=== PATIENT | male | born 1965 | race Caucasian/White ===

== ENCOUNTER 2016-10-14 17:42 | Emergency (ER) | payer OTHER ==
[2016-10-14 17:48] VITALS: RESP 16; TEMP 98.2
--- NOTE | 2016-10-14 17:56 | CPEKG ---
Heart Rate: 49 RR Interval: 1224 P-R Interval: 160 QRSD Interval: 90 QT Interval: 416 QTC Interval: 376 P [place]: 44 QRS [place]: 52 T Wave [place]: 17 EKG Severity - OTHERWISE NORMAL ECG - EKG Impression: SINUS BRADYCARDIA Electronically Signed By: Danna Franco 14-Oct-2016 19:33:42
--- NOTE | 2016-10-14 17:57 | EDPHY ---
H & P Time Seen by Provider: 10/14/16 17:49 HPI/ROS: CHIEF COMPLAINT: Chest discomfort. HISTORY OF PRESENT ILLNESS: The patient is a 51-year-old male with a history of hypercholesterolemia who presents with persistent 2/10 left-sided chest discomfort that began this morning. He describes it as a muscle tightness or a slight pressure. He does not notice the pain when he is distracted. No change with exertion or deep inspiration. He denies associated sx; no shortness of breath, fever, vomiting, diarrhea, or other complaints. The pain is currently 1/ 10. He does have a history of similar symptoms 10 years ago and had a negative stress test at that time. Intermittent similar sx since then. He denies family cardiac history. REVIEW OF SYSTEMS: A complete 10-point review of systems was performed and is negative except for those items mentioned in the HPI. Past Medical/Surgical History: Hypercholesterolemia. Social History: Nonsmoker. Smoking Status: Never smoked Physical Exam: General Appearance: Alert, no distress Eyes: Pupils equal and round, no conjunctival pallor or injection ENT, Mouth: Mucous membranes moist Neck: Normal inspection Respiratory: Lungs are clear to auscultation Cardiovascular: Regular rate and rhythm Gastrointestinal: Abdomen is soft and non-tender Neurological: A&O, nonfocal, normal gait Skin: Warm and dry, no rash Extremities: Nontender, no pedal edema Psychiatric: Mood and affect normal Constitutional: Initial Vital Signs Temperature (C) 36.8 C 10/14/16 17:44 Heart Rate 61 10/14/16 17:44 Respiratory Rate 16 10/14/16 17:44 Blood Pressure 151/94 H 10/14/16 17:44 O2 Sat (%) 95 10/14/16 17:44 O2 Delivery Mode Room Air Allergies/Adverse Reactions: No Known Allergies Allergy (Unverified 10/14/16 17:43) Home Medications: Medication Instructions Recorded Claritin 10/14/16 Medical Decision Making - Diagnostics Imaging: Imaging Impressions Chest X-Ray 10/14/16 17:52 Impression: 1. Possibly mild airways disease. 2. Mild cardiomegaly without CHF. Enlarged right atrium. ED Course/Re-evaluation: 51-year-old male with a history of hypercholesterolemia presents with intermittent 2/10 left-sided chest discomfort that began this morning. He has no other symptoms with this. He does not have diabetes and is a non-smoker. He has a normal exam today in the ED. He has a family history of hypercholesterolemia but no cardiac disease. An IV was established and labs ordered. Chest x-ray and EKG obtained. Stat EKG reveals no evidence of ischemia or dysrhythmia. I independently viewed the patient's images on the PACS system. My interpretation: No acute disease. Please see Imaging section for radiologist report. This patient presents with atypical chest pain. After careful consideration and evaluation, I find no evidence of acute coronary syndrome. The patient has prolonged and quite mild cp, no exertional sx, normal EKG and normal studies. In addition, I feel that I can safely exclude pulmonary embolism, with normal vital signs, normal oxygen saturation and no RF for PE. In addition there is no evidence of pneumothorax, pneumonia, aortic dissection. No chest pain on discharge. Differential Diagnosis: The differential diagnosis for the patient's chest pain included but was not limited to myocardial ischemia, pulmonary embolus, chest wall pain, pleural inflammation, and pulmonary infectious causes. - Data Points Laboratory Results: Laboratory Results 10/14/16 18:00 10/14/16 18:00 10/14/16 10/14/16 18:00 18:00 WBC 8.27 10^3/uL 10^3/uL (3.80-9.50) RBC 5.66 10^6/uL 10^6/uL (4.40-6.38) Hgb 16.6 g/dL g/dL (13.7-17.5) Hct 47.2 % % (40.0-51.0) MCV 83.4 fL fL (81.5-99.8) MCH 29.3 pg pg (27.9-34.1) MCHC 35.2 g/dL g/dL (32.4-36.7) RDW 13.0 % % (11.5-15.2) Plt Count 209 10^3/uL 10^3/uL (150-400) MPV 12.4 fL H fL (8.7-11.7) Neut % (Auto) 56.2 % % (39.3-74.2) Lymph % (Auto) 31.3 % % (15.0-45.0) [place] % (Auto) 8.0 % % (4.5-13.0) Eos % (Auto) 3.4 % % (0.6-7.6) Baso % (Auto) 0.7 % % (0.3-1.7) Nucleat RBC Rel Count 0.0 % % (0.0-0.2) Absolute Neuts (auto) 4.65 10^3/uL 10^3/uL (1.70-6.50) Absolute Lymphs (auto) 2.59 10^3/uL 10^3/uL (1.00-3.00) Absolute Monos (auto) 0.66 10^3/uL 10^3/uL (0.30-0.80) Absolute Eos (auto) 0.28 10^3/uL 10^3/uL (0.03-0.40) Absolute Basos (auto) 0.06 10^3/uL 10^3/uL (0.02-0.10) Absolute Nucleated RBC 0.00 10^3/uL 10^3/uL (0-0.01) Immature Gran % 0.4 % % (0.0-1.1) Immature Gran # 0.03 10^3/uL 10^3/uL (0.00-0.10) Sodium 141 mEq/L mEq/L (134-144) Potassium 4.1 mEq/L mEq/L (3.5-5.2) Chloride 107 mEq/L mEq/L (97-110) Carbon Dioxide 24 mEq/l mEq/l (22-31) Anion Gap 10 mEq/L mEq/L (8-16) BUN 21 mg/dL mg/dL (7-23) Creatinine 0.8 mg/dL mg/dL (0.7-1.3) Estimated GFR > 60 Glucose 77 mg/dL mg/dL (70-100) Calcium 9.3 mg/dL mg/dL (8.5-10.4) Troponin I < 0.012 ng/mL ng/mL (0-0.034) Departure - Departure Disposition: Home, Routine, Self-Care Clinical Impression: Chest pain Qualifiers: Chest pain type: unspecified Qualified Code(s): R07.9 - Chest pain, unspecified Condition: Good Instructions: Chest Pain (ED) Additional Instructions: Follow up with Dr. Lawson, cardiology, this week further evaluation. Return to the emergency department if you experience worsening chest pain, shortness of breath, fever or any concerns. Referrals: Sabrina Ryan MD [Primary Care Provider] - As per Instructions Ray Lawson MD [Medical Doctor] - As per Instructions Report Scribed for: Danna Franco Report Scribed by: Elton Hutchison Date of Report: 10/14/16 Time of Report: 17:50 Physician Review and Approval Statement: 10/14/16 17:50 Portions of this note were transcribed by a director medical writing. I personally performed a history, physical exam, medical decision making, and confirmed accuracy of information the transcribed note.
[2016-10-14 18:09] LABS: % IMMATURE GRANULYOCYTES 0.4 % (0.0-1.1); ABSOLUTE IMMATURE GRANULOCYTES 0.03 10^3/uL (0.00-0.10); ADD DIFF? NO; ADD MORPH? NO; ADD SCAN? NO; ATYPICAL LYMPHOCYTE FLAG 10 (0-99); FRAGMENT RBC FLAG 0 (0-99); HEMATOCRIT 47.2 % (40.0-51.0); HEMOGLOBIN 16.6 g/dL (13.7-17.5); LEFT SHIFT FLG 0 (0-99); LIPEMIA HEMOLYSIS FLAG 90 (0-99); MEAN CELL HEMOGLOBIN 29.3 pg (27.9-34.1); MEAN CELL HEMOGLOBIN CONCENTR. 35.2 g/dL (32.4-36.7); MEAN CELL VOLUME 83.4 fL (81.5-99.8); MEAN PLATELET VOLUME 12.4 fL (8.7-11.7); PLATELET CLUMPS FLAG 0 (0-99); PLATELET COUNT 209 10^3/uL (150-400); RED BLOOD CELL COUNT 5.66 10^6/uL (4.40-6.38)
[2016-10-14 18:34] LABS: ANION GAP 10 mEq/L (8-16); CALCIUM 9.3 mg/dL (8.5-10.4); CARBON DIOXIDE 24 mEq/l (22-31); CHLORIDE 107 mEq/L (97-110); CREATININE 0.8 mg/dL (0.7-1.3); GLOMERULAR FILTRATION RATE > 60; GLUCOSE 77 mg/dL (70-100); POTASSIUM 4.1 mEq/L (3.5-5.2); SODIUM 141 mEq/L (134-144)
[2016-10-14 18:45] LABS: TROPONIN I < 0.012 ng/mL (0-0.034)
[2016-10-14 19:17] VITALS: BP 120/71; PULSE 51; O2SAT 96
== END 2016-10-14 19:16 | disposition home or self-care (01) ==
DX: R07.9 Chest pain, unspecified (principal)

== ENCOUNTER 2018-10-20 12:34 | Emergency (ER) | payer OTHER ==
--- NOTE | 2018-10-20 12:44 | EDPHY ---
H & P Stated Complaint: chest tightness Time Seen by Provider: 10/20/18 12:44 - Personal History Current Tetanus/Diphtheria Vaccine: Unsure Current Tetanus Diphtheria and Acellular Pertussis (TDAP): Unsure - Medical/Surgical History Hx Asthma: No Hx Chronic Respiratory Disease: No Hx Diabetes: No Hx Cardiac Disease: No Hx Renal Disease: No Hx Cirrhosis: No Hx Alcoholism: No Hx HIV/AIDS: No Hx Splenectomy or Spleen Trauma: No Other PMH: denies - Social History Smoking Status: Never smoked Constitutional: Initial Vital Signs Temperature (C) 36.8 C 10/20/18 12:36 Heart Rate 54 L 10/20/18 12:36 Respiratory Rate 16 10/20/18 12:36 Blood Pressure 135/85 H 10/20/18 12:36 O2 Sat (%) 97 10/20/18 12:36 O2 Delivery Mode Room Air Allergies/Adverse Reactions: No Known Allergies Allergy (Unverified 10/20/18 12:35) Home Medications: Medication Instructions Recorded Claritin 10/14/16 Medical Decision Making ED Course/Re-evaluation: CHIEF COMPLAINT: HISTORY OF PRESENT ILLNESS: The patient is a 53 y/o male complaining of left-sided chest tightness. worse with movement and taking a deep breath No fever, headache, body aches, lightheadedness, chest pain, heart palpitations , shortness of breath, cough, abdominal pain, urinary or bowel complaints, numbness, paresthesias. REVIEW OF SYSTEMS: A 10 point review of systems was performed and is negative with the exception of the elements mentioned in the history of present illness. PHYSICAL EXAM: HR, BP, O2 Sat, RR. Temp noted General Appearance: Alert, well hydrated, appropriate, and non-toxic appearing. Head: Atraumatic without scalp tenderness or obvious injury Eyes: Pupils equal, round, reactive to light and accommodation, EOMI, no trauma , no injection. Ears: Clear bilaterally, no perforation, normal landmarks Nose: Atraumatic, no rhinorrhea, clear. Throat: There is no erythema or exudates, no lesions, normal tonsils, mucus membranes moist. Neck: Supple, 2+ carotid upstroke, nontender, no lymphadenopathy. Respiratory: No retractions, no distress, no wheezes, and no accessory muscle use. Lungs are clear to auscultation bilaterally. Cardiovascular: Regular rate and rhythm, no murmurs, rubs, or gallops. Bilateral carotid, radial, dorsalis pedis, and posterior tibial pulses intact. Good capillary refill all extremities. Gastrointestinal: Abdomen is soft, nontender, non-distended, no masses, no rebound, no guarding, no peritoneal signs. Musculoskeletal: Normal active ROM of all extremities, atraumatic. Neurological: Alert, appropriate, and interactive. The patient has normal DTRs and non-focal cranial nerves, motor, sensory, and cerebellar exam. Skin: No rashes, good turgor, no nodules on palpation. Past medical history: Past surgical history: Family history: Social history: DIAGNOSTICS/PROCEDURES/CRITICAL CARE TIME: DIFFERENTIAL DIAGNOSIS: MEDICAL DECISION MAKIN: I interpreted patient's EKG as sinus rhythm with a rate of 55. Report Scribed for: Sabino Echols Report Scribed by: Lizy Houston Date of Report: 10/20/18 Time of Report: 12:44
--- NOTE | 2018-10-20 12:47 | EDPHY ---
H & P Stated Complaint: chest tightness Time Seen by Provider: 10/20/18 12:44 - Personal History Current Tetanus/Diphtheria Vaccine: Unsure Current Tetanus Diphtheria and Acellular Pertussis (TDAP): Unsure - Medical/Surgical History Hx Asthma: No Hx Chronic Respiratory Disease: No Hx Diabetes: No Hx Cardiac Disease: No Hx Renal Disease: No Hx Cirrhosis: No Hx Alcoholism: No Hx HIV/AIDS: No Hx Splenectomy or Spleen Trauma: No Other PMH: denies - Social History Smoking Status: Never smoked Constitutional: Initial Vital Signs Temperature (C) 36.8 C 10/20/18 12:36 Heart Rate 54 L 10/20/18 12:36 Respiratory Rate 16 10/20/18 12:36 Blood Pressure 135/85 H 10/20/18 12:36 O2 Sat (%) 97 10/20/18 12:36 O2 Delivery Mode Room Air Allergies/Adverse Reactions: No Known Allergies Allergy (Unverified 10/20/18 12:35) Home Medications: Medication Instructions Recorded Claritin 10/14/16 Medical Decision Making - Diagnostics Imaging Results: Imaging Impressions Chest X-Ray 10/20/18 12:42 Impression: 1. Chronic or recurrent mild airways disease. 2. Mild cardiomegaly with a persistent prominent right atrial contour. Is there any history of tricuspid valve disease? Imaging: I viewed and interpreted images myself ED Course/Re-evaluation: CHIEF COMPLAINT: Chest tightness HISTORY OF PRESENT ILLNESS: The patient is a 53 y/o male complaining of left-sided dull chest tightness. The patient did go on a long bike ride this weekend. Today he developed an "odd sensation in his sternum and rib cage" which has now migrated to his left chest. His symptoms are exacerbated when moving his left arm, twisting his chest or when taking a deep breath. He cannot feel the pain when he is lying still. His pain is non-radiating. No fever, headache, body aches, lightheadedness, heart palpitations, shortness of breath, cough, abdominal pain , urinary or bowel complaints, numbness, paresthesias. REVIEW OF SYSTEMS: A comprehensive 10 system review of systems is otherwise negative aside from elements mentioned in the history of present illness and medical decision making. PHYSICAL EXAM: HR, BP, O2 Sat, RR. Temp noted General Appearance: Alert, well hydrated, appropriate, and non-toxic appearing. Head: Atraumatic without scalp tenderness or obvious injury Eyes: Pupils equal, round, reactive to light and accommodation, EOMI, no trauma , no injection. Ears: Clear bilaterally, no perforation, normal landmarks Nose: Atraumatic, no rhinorrhea, clear. Throat: There is no erythema or exudates, no lesions, normal tonsils, mucus membranes moist. Neck: Supple, 2+ carotid upstroke, nontender, no lymphadenopathy. Respiratory: No retractions, no distress, no wheezes, and no accessory muscle use. Lungs are clear to auscultation bilaterally. Cardiovascular: Regular rate and rhythm, no murmurs, rubs, or gallops. Bilateral carotid, radial, dorsalis pedis, and posterior tibial pulses intact. Good capillary refill all extremities. Gastrointestinal: Abdomen is soft, nontender, non-distended, no masses, no rebound, no guarding, no peritoneal signs. Musculoskeletal: Normal active ROM of all extremities, atraumatic. Neurological: Alert, appropriate, and interactive. The patient has normal DTRs and non-focal cranial nerves, motor, sensory, and cerebellar exam. Skin: No rashes, good turgor, no nodules on palpation. Past medical history: Denies Past surgical history: Denies Family history: Denies Social history: Lives in [place], single, employed DIAGNOSTICS/PROCEDURES/CRITICAL CARE TIME: EKG: The 12 lead EKG was interpreted by myself as. See hard copy and/or "tracemaster" electronic copy for interpretation. Chest x-ray: Mild airways disease. DIFFERENTIAL DIAGNOSIS: The differential diagnosis for the patient's chest pain included but was not limited to myocardial ischemia, pulmonary embolus, chest wall pain, pleural inflammation, and pulmonary infectious causes. MEDICAL DECISION MAKING: The patient is a 53 y/o male presenting with left-sided dull chest tightness. Today he developed an "odd sensation in his sternum and rib cage" which has now migrated to his left chest. His symptoms are exacerbated when moving his left arm, twisting his chest or when taking a deep breath. On exam the chest pain is non-reproducible. Labs, EKG, and chest x-ray ordered; 30mg IV Toradol administered. 1243: I interpreted patient's EKG as sinus rhythm with a rate of 55. 1322: Patient's chest x-ray reveals mild airway disease. Labs still pending. 1328: Patient has denied the Toradol as he doesn't want to try new medications at this time. 1409: Reassessed patient and discussed normal laboratory and imaging findings. I have advised him to follow up with a precision grinder external. Return precautions provided ; patient is comfortable with this plan. - Data Points Laboratory Results: Laboratory Results 10/20/18 12:46 10/20/18 12:46 10/20/18 10/20/18 10/20/18 12:46 12:46 12:46 WBC RBC Hgb Hct MCV MCH MCHC RDW Plt Count MPV Neut % (Auto) Lymph % (Auto) [place] % (Auto) Eos % (Auto) Baso % (Auto) Nucleat RBC Rel Count Absolute Neuts (auto) Absolute Lymphs (auto) Absolute Monos (auto) Absolute Eos (auto) Absolute Basos (auto) Absolute Nucleated RBC Immature Gran % Immature Gran # D-Dimer 0.36 ug/mLFEU ug/mLFEU (0.00-0.50) Sodium 138 mEq/L mEq/L (135-145) Potassium 4.5 mEq/L mEq/L (3.5-5.2) Chloride 103 mEq/L mEq/L (97-110) Carbon Dioxide 24 mEq/l mEq/l (22-31) Anion Gap 11 mEq/L mEq/L (6-14) BUN 19 mg/dL mg/dL (7-23) Creatinine 0.8 mg/dL mg/dL (0.7-1.3) Estimated GFR > 60 Glucose 99 mg/dL mg/dL (70-100) Calcium 9.6 mg/dL mg/dL (8.5-10.4) POC Troponin I 0.02 ng/mL ng/mL (0.00-0.08) 10/20/18 12:46 WBC 5.65 10^3/uL 10^3/uL (3.80-9.50) RBC 5.88 10^6/uL 10^6/uL (4.40-6.38) Hgb 17.0 g/dL g/dL (13.7-17.5) Hct 50.5 % % (40.0-51.0) MCV 85.9 fL fL (81.5-99.8) MCH 28.9 pg pg (27.9-34.1) MCHC 33.7 g/dL g/dL (32.4-36.7) RDW 13.1 % % (11.5-15.2) Plt Count 212 10^3/uL 10^3/uL (150-400) MPV 12.2 fL H fL (8.7-11.7) Neut % (Auto) 54.2 % % (39.3-74.2) Lymph % (Auto) 32.9 % % (15.0-45.0) [place] % (Auto) 8.5 % % (4.5-13.0) Eos % (Auto) 3.7 % % (0.6-7.6) Baso % (Auto) 0.5 % % (0.3-1.7) Nucleat RBC Rel Count 0.0 % % (0.0-0.2) Absolute Neuts (auto) 3.06 10^3/uL 10^3/uL (1.70-6.50) Absolute Lymphs (auto) 1.86 10^3/uL 10^3/uL (1.00-3.00) Absolute Monos (auto) 0.48 10^3/uL 10^3/uL (0.30-0.80) Absolute Eos (auto) 0.21 10^3/uL 10^3/uL (0.03-0.40) Absolute Basos (auto) 0.03 10^3/uL 10^3/uL (0.02-0.10) Absolute Nucleated RBC 0.00 10^3/uL 10^3/uL (0-0.01) Immature Gran % 0.2 % % (0.0-1.1) Immature Gran # 0.01 10^3/uL 10^3/uL (0.00-0.10) D-Dimer Sodium Potassium Chloride Carbon Dioxide Anion Gap BUN Creatinine Estimated GFR Glucose Calcium POC Troponin I Point of Care Test Results: Chemistry 10/20/18 12:46 POC Troponin I 0.02 ng/mL ng/mL (0.00-0.08) Departure - Departure Disposition: Home, Routine, Self-Care Clinical Impression: Anxiety, Musculoskeletal chest pain Chest pain Qualifiers: Chest pain type: other chest pain Qualified Code(s): R07.89 - Other chest pain Condition: Good Instructions: Chest Pain (ED), Musculoskeletal Pain (ED), Anxiety (ED) Additional Instructions: 1. Follow-up with your primary doctor within 72 hours. 2. Return to the Emergency Department for fever, chest pain, shortness of breath , increasing pain or other worsening of condition. 3. Follow up with a precision grinder external for further testing, as soon as possible, within one week. 4. As we discussed, it is impossible to fully rule out heart disease as the cause of your chest pain in the emergency department. We would be happy to reevaluate you and observe you in the hospital at any time. Referrals: Ray Lawson MD [Medical Doctor] - As per Instructions Report Scribed for: Sabino Echols Report Scribed by: Lizy Houston Date of Report: 10/20/18 Time of Report: 13:01
[2018-10-20 13:01] LABS: PLATELET COUNT 212 10^3/uL (150-400)
[2018-10-20] MEDS ORDERED: KETOROLAC 30 MG/1 ML SDV IVP ONE (13:19)
--- NOTE | 2018-10-20 13:49 | CPEKG ---
Test Reason : OPEN Blood Pressure : / mmHG Vent. Rate : 055 BPM Atrial Rate : 055 BPM P-R Int : 152 ms QRS Dur : 093 ms QT Int : 439 ms P-R-T Axes : 047 038 038 degrees QTc Int : 420 ms Sinus rhythm Confirmed by Sabino Echols ([id number]) on 10/20/2018 1:49:21 PM Referred By: Sabino Echols Confirmed By:Sabino Echols
[2018-10-20 14:17] VITALS: BP 127/66
== END 2018-10-20 14:21 | disposition home or self-care (01) ==
DX: R07.89 Other chest pain (principal); F41.9 Anxiety disorder, unspecified
CPT/HCPCS: 84484-ER; J1885